=== PATIENT | male | born 1950 | race Caucasian/White ===

== ENCOUNTER 2020-11-19 03:57 | Emergency (ER) | payer MEDICARE ==
[2020-11-19] MEDS: Albuterol/Ipratropium 3.0-0.5 MG/3 ML Neb Soln NEB ONE (04:45)
[2020-11-19] MEDS: Albuterol 8 GM Inhaler INH ONE (06:18)
--- NOTE | 2020-11-19 07:50 | CR ---
Date of Service: 11/19/20 Clinical Data: Cough - SOB. AP CHEST: Comparison is made to a prior exam dated 09/19/14. The heart size is normal. There is calcification of the aortic arch. The lungs are hyperexpanded. There are emphysematous changes throughout both lungs with fibrotic changes bilaterally. No pneumothorax. No pleural effusions. No evidence of acute intrathoracic disease. [id number] [facility]
--- NOTE | 2020-11-19 10:07 | EDM.PDOC ---
ED HPI GENERAL MEDICAL PROBLEM - General Chief Complaint: Respiratory Problem Stated Complaint: PROBLEMS BREATHING and SOB x 1 day. Time Seen by Provider: 11/19/20 04:40 - History of Present Illness INITIAL COMMENTS - FREE TEXT/NARRATIVE: Patient states he started feeling symptoms yesterday with shortness of breath and some trouble breathing. It has been slowly getting worse some wheezing noted at times. The patient does not have any type of inhaler medication or nebulizer meds that he can use at home. He denies any chest pain, fever, nausea ,vomiting or abdominal pain. 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 (see below) (none.) - Related Data Allergies Allergy/AdvReac Type Severity Reaction Status Date / Time No Known Allergies Allergy Verified 11/19/20 05:09 Home Meds: Home Meds Levothyroxine Sodium [Synthroid] 25 mcg PO DAILY 05/12/13 [History] Past Medical History Respiratory History: Reports: COPD Social & Family History - Family History Family Medical History: No Pertinent Family History - Tobacco Use Tobacco Use Status *Q: Current Every Day Tobacco User Years of Tobacco use: 40 Packs/Tins Daily: 1 - Caffeine Use Caffeine Use: Reports: Coffee - Recreational Drug Use Recreational Drug Use: No ED ROS GENERAL - Review of Systems Review Of Systems: Comprehensive ROS is negative, except as noted in HPI. Respiratory: Reports: Shortness of Breath, Wheezing, Cough ED EXAM, GENERAL - Physical Exam Exam: See Below Exam Limited By: No Limitations General Appearance: Alert, WD/WN, No Apparent Distress Ears: Normal External Exam, Normal Canal, Hearing Grossly Normal, Normal TMs Ear Exam: Bilateral Ear: Auricle Normal, Canal Normal, TM normal Nose: Normal Inspection, Normal Mucosa, No Blood Throat/Mouth: Normal Inspection, Normal Lips, Normal Teeth, Normal Gums, Normal Oropharynx, Normal Voice, No Airway Compromise Head: Atraumatic, Normocephalic Neck: Normal Inspection, Supple, Non-Tender, Full Range of Motion Respiratory/Chest: No Respiratory Distress, Lungs Clear, Normal Breath Sounds, No Accessory Muscle Use, Chest Non-Tender, Decreased Breath Sounds, Wheezing, Other (and coughing with breathing. Cough is dry.) Cardiovascular: Normal Peripheral Pulses, Regular Rate, Rhythm, No Edema, No Gallop, No JVD, No Murmur, No Rub GI/Abdominal: Normal Bowel Sounds, Soft, Non-Tender, No Organomegaly, No Distention, No Abnormal Bruit, No Mass (Male) Exam: No Hernia, Normal Inspection, Normal Prostate, Circumcised, Deferred Back Exam: Normal Inspection, Full Range of Motion, NT Extremities: Normal Inspection, Normal Range of Motion, Non-Tender, Normal Capillary Refill, No Pedal Edema Neurological: Alert, Oriented, Normal Cognition, Normal Gait Psychiatric: Normal Affect, Normal Mood Skin Exam: Warm, Dry, Intact, Normal Color, No Rash Lymphatic: No Adenopathy Course - Vital Signs Text/Narrative:: Initial vital signs on Toby revealed a blood pressure 174/99, temp 97.5, O2 sats are 95% on room air, respirations 16 pulse 112. Last Recorded V/S: Last Vital Signs Temp 97.5 F 11/19/20 04:40 Pulse 87 11/19/20 06:08 Resp 20 11/19/20 05:33 BP 141/66 H 11/19/20 06:08 Pulse Ox 91 L 11/19/20 06:08 - Orders/Labs/Meds Orders: Active Orders 24 hr Category Date Time Status Cardiac Monitoring [RC] .As Directed Care 11/19/20 04:48 Active Labs: Laboratory Tests 11/19/20 11/19/20 Range/Units 05:00 05:00 WBC 11.2 H D (4.0-11.0) K/uL RBC 4.69 (4.50-6.50) M/uL Hgb 14.5 (13.0-18.0) g/dL Hct 44.3 (40.0-54.0) % MCV 95 (76-96) fL MCH 30.9 (27.0-32.0) pg MCHC 32.7 (31.0-35.0) g/dL RDW 14.5 (11.0-16.0) % Plt Count 244 (150-400) K/uL MPV 10.6 H (6.0-10.0) fL Neut % (Auto) 71.0 H (45.0-70.0) % Lymph % (Auto) 14.3 L (20.0-40.0) % [place] % (Auto) 12.0 H (3.0-10.0) % Eos % (Auto) 2.3 (1.0-5.0) % Baso % (Auto) 0.4 (0.0-0.5) % Neut # (Auto) 7.97 H (2.00-7.50) K/uL Lymph # (Auto) 1.61 (1.50-4.00) K/uL [place] # (Auto) 1.35 H (0.20-0.80) K/uL Eos # (Auto) 0.26 (0.04-0.40) K/uL Baso # (Auto) 0.05 (0.02-0.10) K/uL Sodium 146 H (136-145) mmol/L Potassium 3.7 (3.5-5.1) mmol/L Chloride 104 (98-107) mmol/L Carbon Dioxide 30.2 (21.0-32.0) mmol/L Anion Gap 15.5 H (5.0-15.0) mmol/L BUN 5 L D (8-26) mg/dL Creatinine 0.92 (0.70-1.30) mg/dL Est Cr Clr Drug Dosing 56.70 mL/min Estimated GFR (MDRD) > 60 (>60) MLS/MIN BUN/Creatinine Ratio 5.4 L (6-25) Glucose 118 H (74-100) mg/dL Calcium 8.7 (8.5-10.1) mg/dL Total Bilirubin 0.6 (0.0-1.0) mg/dL AST 35 (15-37) U/L ALT 33 (12-78) U/L Alkaline Phosphatase 80 (46-116) U/L Total Protein 8.0 (6.4-8.2) g/dL Albumin 3.6 (3.4-5.0) g/dL Globulin 4.4 H (2.2-4.2) g/dL Albumin/Globulin Ratio 0.8 (0.8-2.0) Meds: Medications Discontinued Medications Generic Name Dose Route Start Last Admin Trade Name Yoelq PRN Reason Stop Dose Admin Albuterol Confirm 11/19/20 06:00 11/19/20 06:18 Albuterol 8 Gm Inhaler Administered 11/19/20 06:01 Not Given Dose 8 gm INH .STK-MED ONE Albuterol/Ipratropium 3 ml 11/19/20 04:47 11/19/20 04:45 Albuterol/Ipratropium 3.0-0.5 Mg/3 Ml Neb Soln NEB 11/19/20 04:48 3 ml ONETIME ONE Administration - Re-Assessments/Exams Free Text/Narrative Re-Assessment/Exam: 11/19/20 10:10 After giving the patient a nebulizer treatment his condition improved significantly he states that he feels much better. Lung sounds now are clear he has only one faint expiratory wheeze in the upper right quadrant. He is moving air better and he is no longer coughing. 11/19/20 10:10 Vital signs now have improved his blood pressure is 141/66, O2 sats are 91% at this time, and pulse is 87. 11/19/20 10:11 Chest x-ray was obtained showing COPD type type changes. No sign of pneumonia or other acute infection. 11/19/20 10:12 Chest x-ray report shows emphysema type changes and fibrotic changes nothing acute. Labs include a CBC showing just a slightly elevated white count of just over 11. comprehensive metabolic panel is unremarkable. 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 Albuterol inhaler 2 puffs every 4 hours. Follow up with your primary care provider as needed. Care Plan Goals: Discharge plan patient will be sent home with an albuterol inhaler. He is to take it using 2 puffs every 4-6 hours as needed for coughing, shortness of breath or wheezing. The patient states he knows how to take an inhaler, but I did go through the directions teaching him how to use it properly. He is to continue with activity as tolerated. He is to follow-up in the clinic within the next few days with his primary care provider for recheck, and to discuss if he needs it further medications such as maintenance medications for his COPD/emphysema. Patient has no questions and states that he feels fine at this time. End of dictation Sepsis Event Note (ED) - Evaluation Sepsis Screening Result: No Definite Risk - Focused Exam Vital Signs: Vital Signs Temp Pulse Resp BP Pulse Ox 11/19/20 06:08 87 141/66 H 91 L 11/19/20 05:33 78 20 152/80 H 90 L 11/19/20 04:40 97.5 F 112 H 16 174/99 H 95 - My Orders Last 24 Hours: My Active Orders 11/19/20 04:48 Cardiac Monitoring [RC] .As Directed - Assessment/Plan Last 24 Hours: My Active Orders 11/19/20 04:48 Cardiac Monitoring [RC] .As Directed
== END 2020-11-19 06:10 | disposition home or self-care (01) ==
LOC: LB.ED 03:57
DX: J43.1 Panlobular emphysema (principal); Z72.0 Tobacco use; Z79.899 Other long term (current) drug therapy
CPT/HCPCS: 36415; 71045; 80053; 85025; 99285; A9270; J7620-GY

== ENCOUNTER 2021-05-02 11:52 | Emergency (ER) | payer MEDICARE ==
--- NOTE | 2021-05-02 12:31 | EDM.PDOC ---
ED HPI GENERAL MEDICAL PROBLEM - General Chief Complaint: Head Injury Stated Complaint: fell Time Seen by Provider: 05/02/21 12:05 Source of Information: Reports: Patient History Limitations: Reports: No Limitations - History of Present Illness INITIAL COMMENTS - FREE TEXT/NARRATIVE: 71-year-old male presents to the ED complaining of right-sided head pain and neck pain secondary to a fall that occurred on . Patient denies any loss of consciousness at the time of the event. States that he has had some nausea without vomiting and blurred vision since the event. This was a fall from standing onto ice. Patient has chronic back pain which is the same today as it is normally. Patient denies chest pain, shortness of breath, syncope/near syncope, constipation/diarrhea, blurred vision, difficulty swallowing, rash, fever. - Related Data Allergies Allergy/AdvReac Type Severity Reaction Status Date / Time No Known Allergies Allergy Verified 11/19/20 05:09 Home Meds: Home Meds Levothyroxine Sodium [Synthroid] 25 mcg PO DAILY 05/12/13 [History] Past Medical History Respiratory History: Reports: COPD Social & Family History - Family History Family Medical History: No Pertinent Family History - Caffeine Use Caffeine Use: Reports: Coffee ED ROS GENERAL - Review of Systems Review Of Systems: See Below Constitutional: Reports: No Symptoms HEENT: Reports: Other (Blurred vision tingling sensation behind his right ear) Respiratory: Reports: Shortness of Breath (COPD), Wheezing (COPD) Cardiovascular: Reports: No Symptoms Endocrine: Reports: No Symptoms GI/Abdominal: Reports: No Symptoms : Reports: No Symptoms Musculoskeletal: Reports: Neck Pain, Muscle Stiffness Skin: Reports: No Symptoms, Other (Unhygienic) Neurological: Reports: No Symptoms Psychiatric: Reports: No Symptoms ED EXAM, HEAD INJURY - Physical Exam Exam: See Below Text/Narrative:: ABC intact. No apparent distress. No obvious trauma. Speaking in full sentences. Alert and oriented x3, GCS 456. Exam Limited By: No Limitations General Appearance: Alert, WD/WN, No Apparent Distress Head: Atraumatic, Normocephalic, Scalp Tenderness. No: Scalp Swelling, Scalp Abrasions, Scalp Ecchymosis, Active Bleeding, Elizabeth's Sign, Facial Ecchymosis, Facial Lacerations, Facial Swelling Eyes: Bilateral Eye: EOMI, PERRL Ears: Normal External Exam Nose: No Blood. No: Nasal Deformity Throat/Mouth: Normal Voice, No Airway Compromise Neck: Paraspinous Muscle Tender, Stiff Neck, Tenderness, Tender Lateral (Right lateral) Respiratory: No Respiratory Distress, No Accessory Muscle Use, Chest Non-Tender, Decreased Breath Sounds (All ramachandran secondary to COPD), Wheezing (Secondary to COPD) Cardiovascular: Normal Peripheral Pulses, Regular Rate, Rhythm GI/Abdominal Exam: Soft, Non-Tender, No Distention, No Mass, Pelvis Stable (Male) Exam: Deferred Rectal (Males) Exam: Deferred Back Exam: Normal Inspection, Paraspinal Tenderness (Thoracic region chronic per patient exactly the same as his constant back pain) Extremities: Normal Inspection, Normal Range of Motion, Non-Tender, No Pedal Edema, Normal Capillary Refill Neurologic: Alert, Normal Mood/Affect, Oriented x 3 Skin: Normal Color, Warm/Dry - Francie Coma Score Best Eye Response (Francie): (4) Open Spontaneously Best Verbal Response (Francie): (5) Oriented Best Motor Response ([place]): (6) Obeys Commands Course - Orders/Labs/Meds Orders: Active Orders 24 hr Category Date Time Status C-Spine [Cervical Spine wo Cont] [CT] Stat Exams 05/02/21 12:19 Ordered Head wo Cont [CT] Stat Exams 05/02/21 12:18 Ordered - Radiology Interpretation Free Text/Narrative:: CT head without contrast impression no evidence of acute intracranial abnormality. CT cervical spine without contrast impression no acute findings Departure - Departure Time of Disposition: 13:09 Disposition: Home, Self-Care 01 Condition: Good Clinical Impression: Post-concussion headache Neck strain Qualifiers: Encounter type: initial encounter Qualified Code(s): S16.1XXA - Strain of muscle, fascia and tendon at neck level, initial encounter - Discharge Information *PRESCRIPTION DRUG MONITORING PROGRAM REVIEWED*: No *COPY OF PRESCRIPTION DRUG MONITORING REPORT IN PATIENT SCHUYLER: No Instructions: Head Injury, Adult, [id number] Referrals: PCP,None [Primary Care Provider] - - My Orders Last 24 Hours: My Active Orders 05/02/21 12:18 Head wo Cont [CT] Stat 05/02/21 12:19 C-Spine [Cervical Spine wo Cont] [CT] Stat - Assessment/Plan Last 24 Hours: My Active Orders 05/02/21 12:18 Head wo Cont [CT] Stat 05/02/21 12:19 C-Spine [Cervical Spine wo Cont] [CT] Stat Assessment:: 71-year-old male who presents for evaluation from trauma to the head after a ground-level fall on ice. This patient has a history and clinical exam consistent with previous concussion, which is a clinical diagnosis. The differential diagnosis includes skull fracture, epidural hematoma, subdural hematoma, intracranial hemorrhage, traumatic subarachnoid hemorrhage; these diagnoses were not detected during a visit on CT imaging. By the normal neuroimaging understands that they must return if any of the red flags appear/develop in the coming hours or days. As this may represent an indication to perform another CT scan. We have noted that the red flags include headaches that get worse with increased drowsiness strange behavior repetitive speech,, seizures, repeated vomiting, groin confusion, increased irritability, slurred speech, weakness or numbness, loss of responsiveness. 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 I have discussed second impact syndrome and the importance of not sustaining repeated concussions in the next 1 to 2 weeks. Postconcussive syndrome is also discussed. Concussion information will also be provided in writing discharge detailing this. Patient's head to toe trauma exam is otherwise negative for serious underlying disease of the head, neck, chest, abdomen, extremities, pelvis. Plan: Airway breathing circulation, rapid trauma exam, history secondary exam, CT of head and C-spine both negative, patient education/shared decision-making, patient to not be extremely active over the next 2 weeks given his brain chance to recover, daily from excessive TV watching and be extra careful not to take his second fall striking his head. -Patient and/or sales representative printing supplies understood and agreed to treatment plan. -All questions were answered to the patient's satisfaction. -Patient is discharged in stable condition. Patient to return to the ED if he experiences any of the red flag symptoms. Follow-up with primary care provider within 1 week.
--- NOTE | 2021-05-03 19:09 | CT ---
Date of Service: 05/02/21 Clinical Data: Head pain secondary to fall UNENHANCED BRAIN CT: Multislice axial acquisition without IV contrast was performed. No priors. There is diffuse atrophy. There is a lucency in the right basal ganglia consistent with an old lacunar infarct. There are periventricular lucencies bilaterally consistent with small vessel ischemic change. No masses or mass effect. No intracranial hemorrhage. No evidence of acute or subacute infarct. No fractures. There is mucosal thickening in the ethmoid sinuses bilaterally consistent with chronic sinusitis. No air-fluid levels. There is also partial opacification of the mastoid air cells, right greater than left consistent with mastoid disease. No other significant findings. [id number] [facility]
--- NOTE | 2021-05-03 19:15 | CT ---
Date of Service: 05/02/21 Clinical Data: Neck pain secondary to fall CERVICAL SPINE CT: Multislice axial acquisition without IV contrast was performed. Axial images and sagittal and coronal reformations are reviewed. The vertebral bodies are of average height and in good alignment. No acute fracture or dislocation. There is degenerative disk disease throughout the cervical spine. No extruded or protruding disks. No significant central or foraminal stenosis. There are degenerative changes involving the atlantoaxial articulation. There are subchondral cysts at multiple levels. No other lytic or blastic bone lesions. [id number] [facility]
== END 2021-05-02 13:02 | disposition home or self-care (01) ==
LOC: LB.ED 11:52
DX: S16.1XXA Strain of muscle, fascia and tendon at neck level, initial encounter (principal); F07.81 Postconcussional syndrome; G44.309 Post-traumatic headache, unspecified, not intractable; Z79.899 Other long term (current) drug therapy; W18.39XA Other fall on same level, initial encounter
CPT/HCPCS: 70450; 72125; 99284-25

== ENCOUNTER 2023-11-01 07:04 | Emergency (ER) | payer MEDICARE ==
[2023-11-01] MEDS: Albuterol/Ipratropium 3.0-0.5 MG/3 ML Neb Soln NEB STA (07:13)
[2023-11-01] MEDS: methylPREDNISolone Sodium Succinate 125 MG/2 ML SDV IVPUSH ONE (07:35)
[2023-11-01] MEDS ORDERED: Sodium Chloride 0.9% 10 ML Syringe FLUSH PRN (07:49)
[2023-11-01 07:55] LABS: BASOPHILS ABSOLUTE AUTO 0.02 K/uL (0.02-0.10); BASOPHILS PERCENT AUTO 0.2 % (0.0-0.5); EOSINOPHILS ABSOLUTE AUTO 0.12 K/uL (0.04-0.40); EOSINOPHILS PERCENT AUTO 1.3 % (1.0-5.0); HEMATOCRIT 40.3 % (40.0-54.0); HEMOGLOBIN 13.3 g/dL (13.0-18.0); LYMPHOCYTES ABSOLUTE AUTO 1.27 K/uL (1.50-4.00); LYMPHOCYTES PERCENT AUTO 13.8 % (20.0-40.0); MEAN CORPUSCULAR HEMOGLOBIN 31.1 pg (27.0-32.0); MEAN CORPUSCULAR VOLUME 94 fL (76-96); MEAN PLATELET VOLUME 10.6 fL (6.0-10.0); MONOCYTES ABSOLUTE AUTO 0.65 K/uL (0.20-0.80); MONOCYTES PERCENT AUTO 7.1 % (3.0-10.0); NEUTROPHILS ABSOLUTE AUTO 7.11 K/uL (2.00-7.50); NEUTROPHILS PERCENT AUTO 77.6 % (45.0-70.0); PLATELET COUNT,PLT 269 K/uL (150-400); RED BLOOD CELL COUNT 4.28 M/uL (4.50-6.50); RED CELL DISTRIBUTION WIDTH 12.4 % (11.0-16.0); WHITE BLOOD CELL COUNT,WBC 9.2 K/uL (4.0-11.0)
[2023-11-01 08:08] LABS: A/G RATIO 0.6 (0.8-2.0); ALBUMIN 2.9 g/dL (3.4-5.0); ANION GAP 8.6 mmol/L (5.0-15.0); BILIRUBIN TOTAL 0.3 mg/dL (0.0-1.0); CALCIUM 8.5 mg/dL (8.5-10.1); CARBON DIOXIDE,CO2 29.8 mmol/L (21.0-32.0); CREATININE 0.75 mg/dL (0.70-1.30); EST CRCL DRUG DOSING (CG) 56.55 mL/min; POTASSIUM,K 5.4 mmol/L (3.5-5.1)
[2023-11-01] MEDS: methylPREDNISolone Sodium Succinate 125 MG/2 ML SDV ONE (18:43)
== END 2023-11-01 10:00 | disposition home or self-care (01) ==
LOC: EDUNIT# → LB.ED 07:04
DX: J44.1 Chronic obstructive pulmonary disease with (acute) exacerbation (principal); Z79.890 Hormone replacement therapy
CPT/HCPCS: 36415; 71045; 80053; 85025; 94640; 96374; 99285; A0425; A0428; J2919; J7620

== ENCOUNTER 2023-12-15 19:15 | Emergency (ER) | payer MEDICARE ==
[2023-12-15] MEDS: Albuterol/Ipratropium 3.0-0.5 MG/3 ML Neb Soln NEB SCH (19:28)
[2023-12-15] MEDS ORDERED: Albuterol 6.7 GM Inhaler INH ONE (20:00)
[2023-12-15 20:08] LABS: BASOPHILS ABSOLUTE AUTO 0.06 K/uL (0.02-0.10); BASOPHILS PERCENT AUTO 0.6 % (0.0-0.5); EOSINOPHILS ABSOLUTE AUTO 0.34 K/uL (0.04-0.40); EOSINOPHILS PERCENT AUTO 3.4 % (1.0-5.0); HEMATOCRIT 37.8 % (40.0-54.0); HEMOGLOBIN 12.1 g/dL (13.0-18.0); LYMPHOCYTES ABSOLUTE AUTO 2.16 K/uL (1.50-4.00); LYMPHOCYTES PERCENT AUTO 21.6 % (20.0-40.0); MEAN CORPUSCULAR HEMOGLOBIN 30.9 pg (27.0-32.0); MEAN CORPUSCULAR VOLUME 96 fL (76-96); MEAN PLATELET VOLUME 10.7 fL (6.0-10.0); MONOCYTES ABSOLUTE AUTO 1.04 K/uL (0.20-0.80); MONOCYTES PERCENT AUTO 10.4 % (3.0-10.0); NEUTROPHILS ABSOLUTE AUTO 6.42 K/uL (2.00-7.50); PLATELET COUNT,PLT 240 K/uL (150-400); RED BLOOD CELL COUNT 3.92 M/uL (4.50-6.50); RED CELL DISTRIBUTION WIDTH 13.5 % (11.0-16.0)
[2023-12-15] MEDS: methylPREDNISolone Sodium Succinate 125 MG/2 ML SDV IVPUSH ONE (20:17)
[2023-12-15] MEDS: methylPREDNISolone Sodium Succinate 125 MG/2 ML SDV ONE (20:20)
[2023-12-15 20:31] LABS: A/G RATIO 0.7 (0.8-2.0); ALBUMIN 2.9 g/dL (3.4-5.0); ANION GAP 10.9 mmol/L (5.0-15.0); BILIRUBIN TOTAL 0.3 mg/dL (0.0-1.0); BUN/CREATININE RATIO 6.8 (6-25); CALCIUM 8.4 mg/dL (8.5-10.1); CARBON DIOXIDE,CO2 28.7 mmol/L (21.0-32.0); CREATININE 0.73 mg/dL (0.70-1.30); EST CRCL DRUG DOSING (CG) 68.35 mL/min; POTASSIUM,K 3.6 mmol/L (3.5-5.1); PROTEIN TOTAL,TP 7.1 g/dL (6.4-8.2)
== END 2023-12-15 20:50 | disposition home or self-care (01) ==
LOC: LB.ED 19:15 → MERGE 19:15 → LB.ED 20:50
DX: J43.9 Emphysema, unspecified (principal); I10 Essential (primary) hypertension; E03.9 Hypothyroidism, unspecified; F17.210 Nicotine dependence, cigarettes, uncomplicated; Z79.890 Hormone replacement therapy; Z79.51 Long term (current) use of inhaled steroids
CPT/HCPCS: 36415; 71045; 80053; 83880; 85025; 94640; 96374; 99283; 99285-25; A9270-GY; J2919; J7620

== ENCOUNTER 2024-02-02 19:50 | Emergency (ER) | payer MEDICARE ==
[2024-02-02] MEDS: Albuterol/Ipratropium 3.0-0.5 MG/3 ML Neb Soln NEB SCH (22:00)
[2024-02-02] MEDS ORDERED: Albuterol 6.7 GM Inhaler INH ONE (22:00)
== END 2024-02-02 22:05 | disposition home or self-care (01) ==
LOC: LB.ED 19:50
DX: J44.1 Chronic obstructive pulmonary disease with (acute) exacerbation (principal); J43.1 Panlobular emphysema; E03.9 Hypothyroidism, unspecified; I10 Essential (primary) hypertension; Z79.899 Other long term (current) drug therapy
CPT/HCPCS: 94640; 99284; A9270-GY; J7620

== ENCOUNTER 2024-09-06 07:50 | Emergency (ER) | payer MEDICARE ==
[2024-09-06] MEDS: Albuterol 0.083% 2.5 MG/3 ML Neb Soln NEB ONE ×2 (08:26→10:38)
[2024-09-06] MEDS: Azithromycin 250 MG Tab PO SCH (08:30)
[2024-09-06 09:48] LABS: HEMATOCRIT 39.4 % (40.0-54.0); HEMOGLOBIN 12.5 g/dL (13.0-18.0); MEAN CORPUSCULAR HEMOGLOBIN 30.6 pg (27.0-32.0); MEAN CORPUSCULAR HGB CONC 31.7 g/dL (31.0-35.0); MEAN PLATELET VOLUME 10.4 fL (6.0-10.0); RED BLOOD CELL COUNT 4.08 M/uL (4.50-6.50); RED CELL DISTRIBUTION WIDTH 14.1 % (11.0-16.0)
[2024-09-06 10:12] LABS: A/G RATIO 0.6 (0.8-2.0); ALBUMIN 2.8 g/dL (3.4-5.0); ANION GAP 8.8 mmol/L (5.0-15.0); BILIRUBIN TOTAL 0.6 mg/dL (0.0-1.0); BUN/CREATININE RATIO 4.7 (6-25); CALCIUM 8.6 mg/dL (8.5-10.1); CARBON DIOXIDE,CO2 32.4 mmol/L (21.0-32.0); CREATININE 0.85 mg/dL (0.70-1.30); EST CRCL DRUG DOSING (CG) 48.66 mL/min; POTASSIUM,K 5.2 mmol/L (3.5-5.1); PROTEIN TOTAL,TP 7.3 g/dL (6.4-8.2)
[2024-09-06] MEDS: Sodium Polystyrene Sulfonate 15 GM/60 ML Susp 60 ML Bot PO ONE (10:48)
== END 2024-09-06 11:20 | disposition home or self-care (01) ==
LOC: LB.ED 07:50
DX: J44.89 Other specified chronic obstructive pulmonary disease (principal); J45.998 Other asthma; J43.9 Emphysema, unspecified; J69.0 Pneumonitis due to inhalation of food and vomit; I10 Essential (primary) hypertension; E03.9 Hypothyroidism, unspecified; Z79.899 Other long term (current) drug therapy; Z79.890 Hormone replacement therapy
CPT/HCPCS: 36415; 71045; 71250; 80053; 85027; 94640; 99285; A9270-GY

== ENCOUNTER 2024-09-24 23:01 | Emergency (ER) | payer MEDICARE ==
[2024-09-24] MEDS: Albuterol/Ipratropium 3.0-0.5 MG/3 ML Neb Soln NEB ONE (23:17)
[2024-09-24] MEDS ORDERED: predniSONE 10 MG Tab ONE (23:30)
[2024-09-24] MEDS: Budesonide 0.5 MG/2 ML Neb Susp NEB ONE (23:40)
[2024-09-25] MEDS: methylPREDNISolone Sodium Succinate 125 MG/2 ML SDV IM ONE (00:14)
[2024-09-25 00:51] LABS: BASOPHILS ABSOLUTE AUTO 0.02 K/uL (0.02-0.10); BASOPHILS PERCENT AUTO 0.2 % (0.0-0.5); EOSINOPHILS ABSOLUTE AUTO 0.32 K/uL (0.04-0.40); EOSINOPHILS PERCENT AUTO 3.7 % (1.0-5.0); HEMATOCRIT 40.9 % (40.0-54.0); HEMOGLOBIN 13.1 g/dL (13.0-18.0); LYMPHOCYTES ABSOLUTE AUTO 1.66 K/uL (1.50-4.00); LYMPHOCYTES PERCENT AUTO 19.3 % (20.0-40.0); MEAN CORPUSCULAR HEMOGLOBIN 31.3 pg (27.0-32.0); MEAN CORPUSCULAR VOLUME 98 fL (76-96); MEAN PLATELET VOLUME 11.3 fL (6.0-10.0); MONOCYTES ABSOLUTE AUTO 1.11 K/uL (0.20-0.80); MONOCYTES PERCENT AUTO 12.9 % (3.0-10.0); NEUTROPHILS PERCENT AUTO 63.9 % (45.0-70.0); PLATELET COUNT,PLT 159 K/uL (150-400); RED BLOOD CELL COUNT 4.18 M/uL (4.50-6.50); RED CELL DISTRIBUTION WIDTH 14.3 % (11.0-16.0); WHITE BLOOD CELL COUNT,WBC 8.6 K/uL (4.0-11.0)
[2024-09-25 00:58] LABS: BASE EXCESS VENOUS 4.3 mm/L (-2-3); BICARBONATE,VENOUS 30.7 mmol/L (23.0-28.0); PCO2 VENOUS 62.4 mm/Hg (41-51)
[2024-09-25 01:20] LABS: A/G RATIO 0.7 (0.8-2.0); ALANINE AMINOTRANSFERASE,ALT 23 U/L (12-78); ALBUMIN 3.1 g/dL (3.4-5.0); ALKALINE PHOSPHATASE 142 U/L (46-116); ANION GAP 7.6 mmol/L (5.0-15.0); ASPARTATE AMNIOTRANSFERASE,AST 29 U/L (15-37); BILIRUBIN TOTAL 0.3 mg/dL (0.0-1.0); BLOOD UREA NITROGEN,BUN 5 mg/dL (8-26); BUN/CREATININE RATIO 6.5 (6-25); CALCIUM 8.9 mg/dL (8.5-10.1); CARBON DIOXIDE,CO2 31.7 mmol/L (21.0-32.0); CHLORIDE,CL 105 mmol/L (98-107); CREATININE 0.77 mg/dL (0.70-1.30); ESTIMATED GFR 93 mL/min (>60); GLUCOSE RANDOM 115 mg/dL (74-100); POTASSIUM,K 4.3 mmol/L (3.5-5.1); PROTEIN TOTAL,TP 7.4 g/dL (6.4-8.2); SODIUM,NA 140 mmol/L (136-145)
[2024-09-25 03:22] VITALS: BP 161/75; PULSE 93
== END 2024-09-25 01:30 | disposition home or self-care (01) ==
LOC: LB.ED 23:01
DX: J44.1 Chronic obstructive pulmonary disease with (acute) exacerbation (principal); I11.0 Hypertensive heart disease with heart failure; I50.9 Heart failure, unspecified; E03.9 Hypothyroidism, unspecified; Z79.899 Other long term (current) drug therapy
CPT/HCPCS: 36415; 71045; 80053; 82803; 83880; 85025; 94640; 96372; 99285; A9270-GY; J2919; J7512

== ENCOUNTER 2024-10-06 16:34 | Emergency (ER) | payer MEDICARE ==
[2024-10-06] MEDS: Albuterol/Ipratropium 3.0-0.5 MG/3 ML Neb Soln NEB ONE (17:06)
[2024-10-06] MEDS: predniSONE 20 MG Tab PO ONE (17:47)
[2024-10-06] MEDS: Albuterol/Ipratropium 3.0-0.5 MG/3 ML Neb Soln NEB SCH (19:15)
[2024-10-06] MEDS ORDERED: predniSONE 20 MG Tab ONE (19:30)
[2024-10-07] MEDS ORDERED: predniSONE 20 MG Tab PO ONE (17:37)
== END 2024-10-06 19:45 | disposition home or self-care (01) ==
LOC: LB.ED 16:34
DX: J44.1 Chronic obstructive pulmonary disease with (acute) exacerbation (principal); E03.9 Hypothyroidism, unspecified; R91.8 Other nonspecific abnormal finding of lung field; I11.0 Hypertensive heart disease with heart failure; I50.9 Heart failure, unspecified; F17.200 Nicotine dependence, unspecified, uncomplicated; Z79.899 Other long term (current) drug therapy; Z79.890 Hormone replacement therapy
CPT/HCPCS: 71045; 94640; 99285; A9270-GY; J7512